=== PATIENT | male | born 1990 | race Native Hawaiian/Other Pacific Islander ===

== ENCOUNTER 2017-02-27 12:46 | Emergency (ER) | payer SELFPAY ==
[2017-02-27 13:52] VITALS: BP 129/73
--- NOTE | 2017-02-27 14:13 | Emergency Department Report ---
Chief Complaint: Weakness Stated Complaint: FACIAL DROOPING/FACIAL WEAKNESS/FACIAL SWELLING Time Seen by Provider: 02/27/17 14:12 - HPI History of Present Illness: PT states his left side of his face is numb. PT states he can not taste on the left side of his mouth. - Exam Vital Signs: Vital Signs 02/27/17 13:46 Temperature 98.6 F Pulse Rate 72 Respiratory 16 Rate Blood Pressure 129/73 O2 Sat by Pulse 100 Oximetry Physical Exam: pt is unable to raise his left eye brow pt is unable to close his left eye lid MSE screening note: Focused history and physical exam performed. Due to findings the following was ordered: ED Disposition for MSE Condition: Stable
== END 2017-02-27 17:02 | disposition left against medical advice (07) ==
LOC: ED 12:46
DX: R20.0 Anesthesia of skin (principal); Z53.21 Procedure and treatment not carried out due to patient leaving prior to being seen by health care provider